=== PATIENT | male | born 1985 | race African-American/Black ===

== ENCOUNTER 2018-04-21 18:32 | Emergency (ER) | payer MEDICAID, OTHER, SELFPAY ==
[2018-04-21] MEDS ORDERED: ACETAMINOPHEN 325 MG TAB As Ordered (19:46)
[2018-04-21 19:50] LABS: HEMATOCRIT 38.9 % (42.0-52.0); HEMOGLOBIN 13.3 g/dl (13.5-17.5); MEAN CORPUSCULAR HEMOGLOBIN 28.4 pg (27.0-33.0); MEAN CORPUSCULAR HGB CONC 34.2 g/dl (32.0-36.5); MEAN CORPUSCULAR VOLUME 83.1 fl (80.0-96.0); PLATELET COUNT, AUTOMATED 203 10^3/uL (150-450); RED BLOOD COUNT 4.68 10^6/uL (4.30-6.10); RED CELL DISTRIBUTION WIDTH 13.9 % (11.5-14.5); WHITE BLOOD COUNT 8.2 10^3/uL (4.0-10.0)
[2018-04-21] MEDS: hydroCHLOROthiazide 25 MG TAB PO (19:51)
[2018-04-21] MEDS: LABETALOL 100 MG TAB PO (19:51)
[2018-04-21] MEDS: PENICILLIN V POTASSIUM 500 MG TAB PO (19:52)
[2018-04-21] MEDS: ACETAMINOPHEN 325 MG TAB PO (19:52)
[2018-04-21 20:18] LABS: ANION GAP 5 MEQ/L (8-16); BLOOD UREA NITROGEN 12 MG/DL (7-18); CALCIUM LEVEL 8.3 MG/DL (8.5-10.1); CARBON DIOXIDE LEVEL 33 MEQ/L (21-32); CHLORIDE LEVEL 103 MEQ/L (98-107); CREATININE FOR GFR 1.18 MG/DL (0.70-1.30); GLOMERULAR FILTRATION RATE > 60.0 (>60); GLUCOSE, FASTING 97 MG/DL (70-100); POTASSIUM SERUM 3.2 MEQ/L (3.5-5.1); SODIUM LEVEL 141 MEQ/L (136-145)
[2018-04-21] MEDS ORDERED: cloNIDine 0.1 MG TAB PO (20:30)
[2018-04-21] MEDS: LABETALOL HCL 100 MG/20 ML VIAL IV ×2 (21:20→22:08)
[2018-04-21] MEDS: hydrALAZINE INJ 20 MG/ML VIAL IV (21:21)
[2018-04-21] MEDS: IBUPROFEN 600 MG TAB PO (23:15)
== END 2018-04-21 23:36 | disposition home or self-care (01) ==
LOC: M ED 18:32
DX: J02.9 Acute pharyngitis, unspecified (principal); I10 Essential (primary) hypertension
CPT/HCPCS: 80048

== ENCOUNTER → 2018-11-04 | Outpatient (CLI) | payer MEDICAID, OTHER ==
[~2018-11-04] MED LIST: HYDR25TAB PO; LOPR1TAB6 PO; PENI500T PO
== END ==
LOC: M SLEEP HO 12:18
PROVIDERS: ATTEND Internal Medicine Pulmonary Disease
DX: R40.0 Somnolence (principal)

== ENCOUNTER 2020-06-04 11:33 | Inpatient (IN) | payer BC, OTHER, SELFPAY ==
[2020-06-04] VITALS (16 sets, daily range): BP systolic 157–205; BP diastolic 90–122
[~2020-06-04] VITALS: Ht 172.7 cm; Wt 105.4 kg
[2020-06-04] MEDS ORDERED: ASPIRIN 81 MG CHEW TABLET PO ONE (12:30)
[2020-06-04 13:07] LABS: BASO % 0.5 % (0.0-1.0); EOS # 0.1 10^3/uL (0.0-0.5); EOS % 2.5 % (0.0-3.0); HEMATOCRIT 41.2 % (42.0-52.0); HEMOGLOBIN 13.8 g/dl (13.5-17.5); LYMPH # 1.9 10^3/uL (1.5-5.0); LYMPH % 42.9 % (24.0-44.0); MEAN CORPUSCULAR HEMOGLOBIN 27.8 pg (27.0-33.0); MEAN CORPUSCULAR HGB CONC 33.5 g/dl (32.0-36.5); MEAN CORPUSCULAR VOLUME 82.9 fl (80.0-96.0); MONO # 0.5 10^3/uL (0.0-0.8); MONO % 10.8 % (0.0-5.0); NEUTROPHILS # 1.9 10^3/uL (1.5-8.5); NEUTROPHILS % 43.3 % (36.0-66.0); PLATELET COUNT, AUTOMATED 215 10^3/uL (150-450); RED BLOOD COUNT 4.97 10^6/uL (4.30-6.10); WHITE BLOOD COUNT 4.4 10^3/uL (4.0-10.0)
[2020-06-04 13:18] LABS: INR 0.99; PROTHROMBIN TIME 13.3 SECONDS (11.8-14.0)
[2020-06-04] MEDS ORDERED: LABETALOL 100MG/20ML VIAL IV STA ×2 (13:18→14:17)
[2020-06-04 13:19] LABS: PARTIAL THROMBOPLASTIN TIME 26.4 SECONDS (25.0-38.4)
[2020-06-04] MEDS ORDERED: NITROGLYCERIN 0.4 MG SUBL TABLET SL PRN (13:30)
--- NOTE | 2020-06-04 13:38 | REPVR ---
PROCEDURE INFORMATION: Exam: XR Chest, 2 Views Exam date and time: 06/04/2020 1:22 PM Age: 35 years old Clinical indication: Chest pain; Type not specified TECHNIQUE: Imaging protocol: XR of the chest Views: 2 views. COMPARISON: No relevant prior studies available. FINDINGS: Tubes, catheters and devices: Limitation: Multiple EKG leads are superimposed on the chest. Lungs: Unremarkable. No consolidation. Pleural space: Unremarkable. No pleural effusion. No pneumothorax. Heart/Mediastinum: Unremarkable. No cardiomegaly. Bones/joints: Unremarkable. IMPRESSION: No acute findings. Electronically signed by: Forest Simmons On 06/04/2020 13:38:56 PM
[2020-06-04 13:39] LABS: ALBUMIN 3.5 GM/DL (3.2-5.2); ALT/SGPT 42 U/L (12-78); BILIRUBIN,DIRECT 0.1 MG/DL (0.0-0.2); BILIRUBIN,TOTAL 0.4 MG/DL (0.2-1.0); BLOOD UREA NITROGEN 12 MG/DL (7-18); CALCIUM LEVEL 8.6 MG/DL (8.5-10.1); CARBON DIOXIDE LEVEL 33 MEQ/L (21-32); CHLORIDE LEVEL 104 MEQ/L (98-107); CK-MB VALUE MASS 1.9 NG/ML (<3.6); CPK CREATINE PHOSPHOKINASE 294 U/L (39-308); CREATININE FOR GFR 1.01 MG/DL (0.70-1.30); FREE T4 1.04 NG/DL (0.76-1.46); GLOMERULAR FILTRATION RATE > 60.0 (>60); GLUCOSE, FASTING 79 MG/DL (70-100); LIPASE 81 U/L (73-393); MB/CK RELATIVE INDEX 0.65 (< OR =4); POTASSIUM SERUM 3.1 MEQ/L (3.5-5.1); SODIUM LEVEL 142 MEQ/L (136-145); TOTAL PROTEIN 7.3 GM/DL (6.4-8.2); TROPONIN I 0.03 NG/ML (< 0.10)
[2020-06-04] MEDS ORDERED: ISOVUE-370 76% 100ML VIAL As Ordered ONE (13:49)
[2020-06-04] MEDS ORDERED: POTASSIUM CHLORIDE 10 MEQ SR TABLET PO ONE (14:00)
--- NOTE | 2020-06-04 14:29 | REPVR ---
PROCEDURE INFORMATION: Exam: CT Angiography Chest With Contrast Exam date and time: 06/04/2020 1:57 PM Age: 35 years old Clinical indication: Chest pain; Additional info: R/O tad TECHNIQUE: Imaging protocol: Computed tomographic angiography of the chest with intravenous contrast. 3D rendering (Not supervised by radiologist): MIP and/or 3D reconstructed images were created by the technologist. Radiation optimization: All CT scans at this facility use at least one of these dose optimization techniques: automated exposure control; mA and/or kV adjustment per patient size (includes targeted exams where dose is matched to clinical indication); or iterative reconstruction. Contrast material: ISOVUE 370; Contrast volume: 100 ml; Contrast route: INTRAVENOUS (IV); COMPARISON: CR Chest, 2 view PA, Lat 06/04/2020 1:12 PM FINDINGS: Pulmonary arteries: There is no evidence of peripheral filling defects within the pulmonary arterial circulation to suggest pulmonary embolism. Aorta: Unremarkable. No aortic aneurysm. No aortic dissection. Lungs: Unremarkable. No consolidation. No masses. Pleural space: Unremarkable. No pneumothorax. No pleural effusion. Heart: The RV/LV ratio is 33/57 mm. The pulmonary artery density is 413 units. Mediastinal space: A small hiatal hernia is present. Lymph nodes: Unremarkable. No enlarged lymph nodes. Liver: Upper abdomen: The visualized portions of the liver, pancreas, adrenal glands, and spleen show no significant abnormalities. Bones/joints: Unremarkable. No acute fracture. Soft tissues: Unremarkable. Other findings: There is no evidence of dissection, leak, rupture, or other complications. IMPRESSION: 1. There is no evidence of dissection, leak, rupture, or other complications. 2. The RV/LV ratio is 33/57 mm. The pulmonary artery density is 413 units. 3. There is no evidence of peripheral filling defects within the pulmonary arterial circulation to suggest pulmonary embolism. Electronically signed by: Forest Simmons On 06/04/2020 14:28:52 PM
[2020-06-04] MEDS ORDERED: DILT1CAP46 PO (15:37)
--- NOTE | 2020-06-04 17:14 | HPEPDOC ---
[facility] Medical History & Physical Date of Admission Jun 04, 2020 Date of Service: Jun 04, 2020 Attending Physician: CARMITA MARTE MD History and Physical CHIEF COMPLAINT: elevated blood pressure HISTORY OF PRESENT ILLNESS: 35 yo M with a hx of sleep apnea, HTN (non compliant with medications), was sent to the ED from sleep clinic for elevated blood pressures of 240s/130s. He denies headache, blurred vision, seizure or weakness. He received labetalol 10 mg IV, followed by an additional 20 mg labetalol IV without change to BP. He further began to endorse substernal non radiating chest pain after being told he will be admitted. EKG showed lateral T-wave inversions. Initial trop 0.03. CT angiogram was performed and did not show aortic dissection, nor evidence for PE. Patient was admitted to ICU, requiring nitro drip for hypertensive urgency. Dr. Camarillo was consulted for cardiology evaluation. PAST MEDICAL HISTORY: 1. 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 REVIEW OF SYSTEMS: CONSTITUTIONAL: none HEENT: none. CARDIOVASCULAR: none. RESPIRATORY: none. GASTROINTESTINAL: none. GENITOURINARY: none SKIN: none. MUSCULOSKELETAL: none. NEUROLOGICAL: none. PSYCHIATRIC: none. ENDOCRINE: none. HEMATOLOGIC/LYMPHATIC: none. HOME MEDICATIONS: Please see below. PHYSICAL EXAMINATION: VITAL SIGNS: see below GENERAL APPEARANCE: NAD, comfortable, sitting on edge of bed. HEENT: PERRLA, EOMI. CARDIOVASCULAR: RRR, midsystolic murmur appreciated LUNGS: CTAB, no wheeze, no rales. ABDOMEN: soft, non tender, no masses, BS+. MUSCULOSKELETAL: normal ROM, no joint deformity. EXTREMITIES: no edema. NEUROLOGICAL: no focal neuro deficits, CN2-12 intact PSYCHIATRIC: calm, cooperative. LABORATORY DATA: See below. IMAGING: CTA (06/04/20) IMPRESSION: 1. There is no evidence of dissection, leak, rupture, or other complications. 2. The RV/LV ratio is 33/57 mm. The pulmonary artery density is 413 units. 3. There is no evidence of peripheral filling defects within the pulmonary arterial circulation to suggest pulmonary embolism. MICROBIOLOGY: Please see below. ASSESSMENT: 35 yo M with a hx of HTN (med non compliant), presenting to [facility] ED from sleep clinic due to hypertensive urgency BP 230/130 mmHg. Complained of mild midsternal chest pain in the ED, which improved with NG. Trop wnl. EKG showing inverted T waves in lateral leads. Admitted to ICU on nitro drip for regulated BP control. 1. Hypertensive urgency: - BP 240/140s, asymptomatic. - No improvement post 30 mg labetalol IV - admit to ICU - nitro drip - check 2D echo, renal US, renal artery doppler - Check TSH, UA - Cardiology on consult, Dr. Stuart Discussed. 2. Chest pain - mild midsternal non radiating chest pain in ED, when told about BP and admission - no chest pain at home - CTA showing no dissection, no PE - initial trop 0.03, trend q6h - check lipid panel 3. Sleep apnea: follows at [facility] sleep clinic. Does not use CPAP at home. DVT ppx: lovenox Dispo: admission will span > nights. Plan for DC home once medically stable. Vital Signs Vital Signs Date Time Temp Pulse Resp B/P (MAP) Pulse Ox O2 Delivery O2 Flow Rate FiO2 06/04/20 14:48 76 205/129 06/04/20 11:33 97.9 20 99 Room Air Laboratory Data Labs 24H Laboratory Tests 2 06/04/20 12:53: Immature Granulocyte % (Auto) 0.0, Neutrophils (%) (Auto) 43.3, Lymphocytes (%) (Auto) 42.9, Monocytes (%) (Auto) 10.8H, Eosinophils (%) (Auto) 2.5, Basophils (%) (Auto) 0.5, Neutrophils # (Auto) 1.9, Lymphocytes # (Auto) 1.9, Monocytes # (Auto) 0.5, Eosinophils # (Auto) 0.1, Basophils # (Auto) 0.0, Nucleated Red Blood Cells % (auto) 0.0, Prothrombin Time 13.3, Prothromb Time International Ratio 0.99, Activated Partial Thromboplast Time 26.4, Anion Gap 5L, Glomerular Filtration Rate > 60.0, Calcium Level 8.6, Total Bilirubin 0.4, Direct Bilirubin 0.1, Aspartate Amino Transf (AST/SGOT) 19, Alanine Aminotransferase (ALT/SGPT) 42, Alkaline Phosphatase 66, Total Creatine Kinase 294, Creatine Kinase MB 1.9, Creatine Kinase MB Relative Index 0.65, Troponin I 0.03, Total Protein 7.3, Albumin 3.5, Albumin/Globulin Ratio 0.9, Lipase 81, Thyroid Stimulating Hormone (TSH) 1.130, Free Thyroxine 1.04 CBC/BMP Laboratory Tests 06/04/20 12:53 Home Medications Scheduled Diltiazem Hcl (Diltiazem 24Hr ER) 360 Mg Cap.er.24h, 360 MG PO DAILY HASN'T TAKEN IN A FEW WEEKS Allergies Coded Allergies: No Known Allergies (Unverified , 04/21/18) A-FIB/CHADSVASC A-FIB History Current/History of A-Fib/PAF?: No Current PO Anticoag Therapy: No CARMITA MARTE MD Jun 04, 2020 17:14
[2020-06-04] MEDS ORDERED: diltiaZEM 125 MG in NS 100 ML IV SCH (18:00)
[2020-06-04] MEDS ORDERED: NITROGLYCERIN/D5W 100MCG/ML 25 MG in IV 1 EA IV SCH (18:45)
[2020-06-04] MEDS: ACETAMINOPHEN 500 MG TAB PO PRN ×2 (18:56→21:42)
[2020-06-04] MEDS ORDERED: ONDANSETRON 4 MG ORAL DISINTEGRATING TAB PO STA (20:51)
[2020-06-04] MEDS ORDERED: amLODIPine 5 MG TAB PO SCH (21:00)
[2020-06-04] MEDS ORDERED: ONDANSETRON 4MG/2ML VIAL As Ordered ONE (21:38)
[2020-06-04] MEDS ORDERED: LISINOPRIL *2.5 MG* TAB PO ONE (23:45)
[2020-06-05] VITALS (14 sets, daily range): BP systolic 135–194; BP diastolic 70–112
[2020-06-05] MEDS: ACETAMINOPHEN 500 MG TAB PO PRN (00:57)
[2020-06-05 01:39] LABS: HEMOGLOBIN A1c 5.5 %
[2020-06-05 05:40] LABS: BASO % 0.4 % (0.0-1.0); EOS % 0.2 % (0.0-3.0); HEMOGLOBIN 13.9 g/dl (13.5-17.5); LYMPH # 0.9 10^3/uL (1.5-5.0); LYMPH % 18.6 % (24.0-44.0); MEAN CORPUSCULAR HGB CONC 32.3 g/dl (32.0-36.5); MEAN CORPUSCULAR VOLUME 83.5 fl (80.0-96.0); MONO # 0.3 10^3/uL (0.0-0.8); MONO % 5.7 % (0.0-5.0); NEUTROPHILS # 3.8 10^3/uL (1.5-8.5); NEUTROPHILS % 74.9 % (36.0-66.0); PLATELET COUNT, AUTOMATED 236 10^3/uL (150-450); RED BLOOD COUNT 5.15 10^6/uL (4.30-6.10); WHITE BLOOD COUNT 5.1 10^3/uL (4.0-10.0)
[2020-06-05 06:10] LABS: ALBUMIN 3.7 GM/DL (3.2-5.2); ALT/SGPT 43 U/L (12-78); BILIRUBIN,TOTAL 0.6 MG/DL (0.2-1.0); BLOOD UREA NITROGEN 11 MG/DL (7-18); CALCIUM LEVEL 8.9 MG/DL (8.5-10.1); CARBON DIOXIDE LEVEL 32 MEQ/L (21-32); CHLORIDE LEVEL 103 MEQ/L (98-107); CHOLESTEROL LEVEL 169 MG/DL (<200); CHOLESTEROL RISK RATIO 4.828 (<5); CREATININE FOR GFR 1.07 MG/DL (0.70-1.30); GLOMERULAR FILTRATION RATE > 60.0 (>60); GLUCOSE, FASTING 121 MG/DL (70-100); HDL CHOLESTEROL 35 MG/DL (>40); LDL CHOLESTEROL 121 MG/DL (<100); MAGNESIUM LEVEL 2.1 MG/DL (1.8-2.4); NON-HDL-C 134 MG/DL; PHOSPHORUS LEVEL 1.9 MG/DL (2.5-4.9); POTASSIUM SERUM 3.5 MEQ/L (3.5-5.1); SODIUM LEVEL 141 MEQ/L (136-145); TOTAL PROTEIN 7.5 GM/DL (6.4-8.2); TRIGLYCERIDES LEVEL 66 MG/DL (<150)
[2020-06-05 06:19] LABS: CORTISOL BASELINE 29.7 UG/DL (4.3-22.4)
--- NOTE | 2020-06-05 07:26 | REPVR ---
PROCEDURE INFORMATION: Exam: US Retroperitoneal Limited, Kidneys Exam date and time: 06/05/2020 6:40 AM Age: 35 years old Clinical indication: Other: Hypertensive urgency TECHNIQUE: Imaging protocol: Real-time ultrasound of the retroperitoneum with image documentation. Examination was focused on the kidneys. COMPARISON: No relevant prior studies available. FINDINGS: Right kidney: The right kidney measures 11.3 x 5.4 x 5.5 cm. Resistive indices 0.57-0.65. Normal appearing echotexture. There is no hydronephrosis or demonstrated renal stone, cyst or mass. Left kidney: The left kidney measures 12.1 x 6.2 x 4.0 cm. Resistive indices 0.50-0.54. Normal appearing echotexture. There is no hydronephrosis or demonstrated renal stone, cyst or mass. Bladder: The urinary bladder appears grossly unremarkable. Bilateral ureteral jets were visualized within it. IMPRESSION: Unremarkable sonographic appearance of the kidneys and urinary bladder. Electronically signed by: Quinton Carey On 06/05/2020 07:25:53 AM
[2020-06-05] MEDS ORDERED: lisinopriL 5 MG TAB PO SCH (09:00)
[2020-06-05] MEDS ORDERED: ENOXAPARIN 40MG/0.4ML SYRINGE (J1650 PER 10MG) SC SCH (09:00)
[2020-06-05] MEDS ORDERED: lisinopriL 5 MG TAB PO ONE ×2 (11:30→17:30)
[2020-06-05] MEDS ORDERED: amLODIPine 5 MG TAB PO ONE (11:45)
[2020-06-05] MEDS ORDERED: LISI-538 PO (18:11)
[2020-06-05] MEDS ORDERED: AMLO1TAB25 PO (18:11)
--- NOTE | 2020-06-05 18:16 | DS.PDOC ---
Discharge Summary General Date of Admission Jun 04, 2020 at 16:40 Date of Discharge 06/05/2020 Attending Physician: CARMITA MARTE MD Discharge Summary PROCEDURES PERFORMED DURING STAY: [None]. ADMITTING DIAGNOSES: 1. Hypertensive urgency 2. Sleep apnea 3. Chest pain DISCHARGE DIAGNOSES: 1. Hypertensive urgency 2. Sleep apnea 3. Chest pain COMPLICATIONS/CHIEF COMPLAINT: Abnormal Ekg,Hypertensive Urgency. HISTORY OF PRESENT ILLNESS:35 yo M with a hx of HTN (med non compliant), presenting to [facility] ED from sleep clinic due to hypertensive urgency BP 230/130 mmHg. Complained of mild midsternal chest pain in the ED, which improved with NG. Trop wnl. EKG showing inverted T waves in lateral leads. Admitted to ICU on nitro drip for regulated BP control. HOSPITAL COURSE: Patient was admitted to ICU for hypertensive urgency. BP treated with nitroglycerin ggt. 2DECHO, renal US and renal artery dopplers were ordered. Troponins were trended (0.03, 0.04, 0.02). Cardiology was consulted - Dr. Camarillo. Patient's blood pressure improved overnight to 163/78, and patient was transitioned to PO medications. Lisipopril and amlodipine were started and titrated. 2D echo showed normal LV function without hypertrophy. Patient's BP melissa through the day, however patient wanted to leave AMA without waiting for titration of PO medications. Renal doppler report not available. Renin pending. Patient was not cleared by cardiology to leave. Risks of stroke, paralysis, explained. Patient verbalized understanding and signed AMA release. DISCHARGE MEDICATIONS: Please see below. ALLERGIES: Please see below. PHYSICAL EXAMINATION ON DISCHARGE: VITAL SIGNS: Please see below. GENERAL APPEARANCE: NAD, comfortable, sitting on edge of bed. HEENT: PERRLA, EOMI. CARDIOVASCULAR: RRR, midsystolic murmur appreciated LUNGS: CTAB, no wheeze, no rales. ABDOMEN: soft, non tender, no masses, BS+. MUSCULOSKELETAL: normal ROM, no joint deformity. EXTREMITIES: no edema. NEUROLOGICAL: no focal neuro deficits, CN2-12 intact PSYCHIATRIC: calm, cooperative. LABORATORY DATA: Please see below. IMAGING: CXR (06/04/2020) IMPRESSION: No acute findings. CTA chest (06/04/2020) IMPRESSION: 1. There is no evidence of dissection, leak, rupture, or other complications. 2. The RV/LV ratio is 33/57 mm. The pulmonary artery density is 413 units. 3. There is no evidence of peripheral filling defects within the pulmonary arterial circulation to suggest pulmonary embolism. Renal US (06/04/2020) IMPRESSION: Unremarkable sonographic appearance of the kidneys and urinary bladder. ACTIVITY: [As tolerated]. DIET: cardiac DISCHARGE PLAN: patient left AMA however was advised to follow up with PCP, and cardiology DISPOSITION: left AMA DISCHARGE INSTRUCTIONS: 1. take BP meds as prescribed. 2. If severe headache, blurred vision, chest pain, to come to ED or dial 911. ITEMS TO FOLLOWUP ON ON OUTPATIENT: 1. Repeat blood pressure 1-3 days. DISCHARGE CONDITION: [Stable]. Vital Signs/I&Os Vital Signs Date Time Temp Pulse Resp B/P (MAP) Pulse Ox O2 Delivery O2 Flow Rate FiO2 06/05/20 17:21 175/84 06/05/20 17:00 98.7 82 17 98 Room Air I&O- Last 24 Hours up to 6 AM 06/05/20 06:00 Intake Total 734 ml Output Total 825 ml Balance -91 ml Laboratory Data Labs 24H Laboratory Tests 2 06/04/20 18:42: Troponin I 0.04# 06/05/20 00:57: Troponin I 0.02# 06/05/20 05:16: Immature Granulocyte % (Auto) 0.2, Neutrophils (%) (Auto) 74.9H, Lymphocytes (%) (Auto) 18.6L, Monocytes (%) (Auto) 5.7H, Eosinophils (%) (Auto) 0.2, Basophils (%) (Auto) 0.4, Neutrophils # (Auto) 3.8, Lymphocytes # (Auto) 0.9L, Monocytes # (Auto) 0.3, Eosinophils # (Auto) 0.0, Basophils # (Auto) 0.0, Nucleated Red Blood Cells % (auto) 0.0, Anion Gap 6L, Glomerular Filtration Rate > 60.0, Calcium Level 8.9, Phosphorus Level 1.9L, Magnesium Level 2.1, Total Bilirubin 0.6, Aspartate Amino Transf (AST/SGOT) 21, Alanine Aminotransferase (ALT/SGPT) 43, Alkaline Phosphatase 71, Total Protein 7.5, Albumin 3.7, Albumin/Globulin Ratio 1.0, Triglycerides Level 66, Total Cholesterol 169, LDL Cholesterol 121H, Non-HDL Cholesterol (LDL + VLDL) 134, Total HDL Cholesterol 35L, Cholesterol/HDL Ratio 4.828, Cortisol Baseline 29.7H CBC/BMP Laboratory Tests 06/05/20 05:16 Discharge Medications Scheduled Amlodipine Besylate (Amlodipine Besylate) 10 Mg Tablet, 10 MG PO DAILY Lisinopril (Lisinopril) 20 Mg Tablet, 20 MG PO DAILY Allergies Coded Allergies: No Known Allergies (Unverified , 04/21/18) CARMITA MARTE MD Jun 05, 2020 18:16
[2020-06-06] MEDS ORDERED: lisinopriL 20 MG TAB PO SCH (09:00)
[2020-06-06] MEDS ORDERED: amLODIPine 10 MG TAB PO SCH (09:00)
[2020-06-06] MEDS ORDERED: lisinopriL 10 MG TAB PO SCH (09:00)
--- NOTE | 2020-06-08 07:34 | CR ---
DATE OF CONSULTATION: 06/05/2020 REFFERING PHYSICIAN: Dr. Kessler REASON FOR CONSULTATION: Elevated blood pressure, abnormal electrocardiogram (EKG). HISTORY OF PRESENT ILLNESS: 35-year-old -[place] male with a history of hypertension for which he has been on medication for one to two years, obstructive sleep apnea (LISBET), was recommended by his house mover helper to come to the emergency room for further evaluation and treatment because his blood pressure was markedly elevated. He was having a follow up on his sleep apnea. There was no report of chest pain, blurred vision, focal manifestation. He does complain of some headache at times and he thinks that his blood pressure is elevated. Upon arrival at the emergency room, it was reported that his blood pressure was up to 240/130. He was given IV labetalol and received up to 30 mg IV in the emergency room without any changes in his blood pressure. He then was admitted for further management and monitoring to ICU/NCCU. Cardiology consult was called. He was then started last evening on IV nitroglycerin, which has brought his systolic blood pressure to 170 mmHg. He was started on amlodipine and lisinopril. When I saw Mr. Escobedo this morning in ICU, he was in supine in bed in no acute distress at rest. He denies any chest pain, shortness of breath, palpitations, pedal edema, orthopnea, syncope or near syncope, focal manifestation. He has not been having headaches or dizziness. He stated that he did not renew his medication for about four weeks and has not been taking them. His diet continues to be regular. He denies any nausea, vomiting, diarrhea, melena or hematemesis. There is no report of bleeding. His main concern that he wants to go home later today/ PAST MEDICAL HISTORY IS POSITIVE FOR: 1. Hypertension 2. Obstructive sleep apnea. 3. Obesity. He denies any prior history of hyperlipidemia, diabetes mellitus, significant valvular heart disease, cardiomyopathy, sudden cardiac , thyroid disease or , kidney disease, liver disease, lung disease, . He goes to pulmonary for his obstructive sleep apnea (LISBET). PAST SURGICAL HISTORY: Noncontributory. SOCIAL HISTORY: The patient currently lives in [place] and was in town to see his house mover helper for follow up on his obstructive sleep apnea. He works with [employer]. He denies smoking or ETOH abuse or illicit drugs. ALLERGIES: No known drug allergies. ADVANCED DIRECTIVES: The patient is a full code. FAMILY HISTORY: Positive for diabetes, his mother. CURRENT MEDICATIONS: Lisinopril 5 mg p.o daily, amlodipine 5 mg daily, Lovenox 40 mg subcutaneous daily. Also on Tylenol 1000 mg q 6 hours as needed for pain or fever or headaches. PHYSICAL EXAMINATION: The patient is alert and oriented in no acute distress at rest and very pleasant. His vital signs when I saw him revealed a blood pressure of 176/87 with a pulse of 94, respirations 18 to 20 and his maximum temperature was 98 degrees Fahrenheit with oxygen saturation 98-99% on room air. Examination of the head: Atraumatic. Neck is supple and no jugular venous distention (JVD) appreciated. The lungs did not reveal any wheezing or crackles. The heart examination revealed regular heart sounds, S4 gallops. I could not appreciate any murmurs. Abdomen is soft and nontender, bowel sounds are active and no bruits. Extremities reveal no pedal edema. Neurological examination is negative for focal deficit. LABORATORY DATA: Complete blood count (CBC) done today revealed WBC of 5.1, hemoglobin 13.9, hematocrit 43.0 and platelets 236,000. Basic metabolic panel (BMP) revealed sodium of 141, potassium 3.5, chloride 103, carbon dioxide 32, BUN 11, creatinine 1.07, glomerular filtration rate (GFR) more than 60, fasting glucose 121, calcium 8.9. Serum magnesium 2.1 Liver enzymes revealed a total bilirubin of 0.6, AST 21, ALT 43, alkaline phosphatase 71, total protein 7.5, albumin 3.7. Lipid profile revealed a total cholesterol of 169, triglycerides 66, LDL 121 and total cholesterol/HDL ratio of 4.8. Serum troponin was 0.03, 0.04 and 0.02. Serum potassium on admission was 3.1. TSH on admission was 1.1 with a free T4 of 1.04. Serum lipase was normal at 81. Hemoglobin A1c on 06/04/2020 was 5.5. PT is 13.3, INR of 0.99 and PTT of 26.4 IMAGING DATA: Chest x-ray on admission revealed no acute disease process. No cardiomegaly. CT angiogram of the chest done on 06/04/2020 revealed no evidence of dissection, pulmonary embolism. Renal ultrasound done today, 06/05/2020, was unremarkable. IMPRESSION: post accelerated hypertension in this 35 year old male with history of hypertension and due to noncompliance with his medications and diet. This was discussed with him. He has agreed to start this medication regularly, but I do not think he is ready to follow a low-salt diet. I have increased his amlodipine up to 7.5 mg p.o daily and his lisinopril to 10 mg p.o. daily. He had an echocardiogram done. There was some concern about hypotrophic cardiomyopathy, but there was no manifestation of hypotrophic cardiomyopathy. He has a normal left ventricular ejection fraction (LVEF) with only mild mitral regurgitation. Full report is in the chart. While in the hospital, I have started workup for accelerated hypertension and will check his serum ammonia level and serum cortisol, particularly in view of the hypokalemia noted on his basic metabolic panel (BMP) on admission. If he remains stable today, he may be discharged home and I will see him again in about two weeks for follow up on his blood pressure in the office. Low salt diet was recommended as well as weight loss, exercise as tolerated. It was a pleasure to participate in the care of Mr. Escobedo for his underlying cardiac condition. He appears to be stable and his blood pressure has improved significantly. Once again, he may be discharged home if he remains stable this afternoon. Otherwise, if his blood pressure remains high, we can increase his medication and watch him for another 24 hours. The case was discussed with his hospitalist. MALCOLM
--- NOTE | 2020-06-09 16:26 | ECHO ---
DATE OF PROCEDURE: 06/04/2020 Age: 35 Gender: Height: Weight: REFERRING PHYSICIAN: EG INDICATION: Abnormal electrocardiogram (EKG), hypertension. MEASUREMENTS: 2D measurements: IVS 1.3 cm LV 5.3 cm LVPW 1.2 cm LA 4.0 cm Aorta 2.9 cm IVC 1.6 cm DOPPLER MEASUREMENTS: Peak velocity across the aortic valve 1.4 cm/s Peak velocity of across LVOT 0.8 cm/s Mitral E 1.0 Mitral A 0.5 with a ratio of 1.8 2D COMMENTS: 1. Normal left ventricular size with mildly increased left ventricular wall thickness and low normal global left ventricular systolic function. Estimated left ventricular systolic ejection fraction is 55 to 60% 2. Borderline enlarged left atrium. Normal right atrium and right ventricle. 3. The atrial septum appears to be normal without evidence of defect or shunt. 4. Normal aortic root. 5. Trace pericardial effusion noted. No evidence of cardiac tamponade 6. The aortic valve, mitral valve and tricuspid valve appear to be normal. The pulmonic valve and proximal pulmonary artery branches were not well visualized. 7. The inferior vena cava was normal in size. Central venous pressure is most likely normal. DOPPLER: It detects mild mitral regurgitation and trace tricuspid regurgitation. The pulmonary artery systolic pressure is most likely normal. Assessment of the left ventricular diastolic function appears to be normal. IMPRESSION: 1. Low normal global left ventricular systolic pressure. Assessment of the left ventricular diastolic function appears to be normal. There was mild concentric left ventricular hypertrophy. 2. Borderline enlarged left atrium with mild mitral regurgitation. 3. Trace tricuspid regurgitation. 4. Trace pericardial effusion. [facility]
--- NOTE | 2020-06-16 20:28 | ECGEPIP ---
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
--- NOTE | 2020-07-02 13:31 | REP ---
RENAL ARTERY DOPPLER ULTRASOUND HISTORY: Hypertensive urgency. SONOGRAPHIC FINDINGS: Peak systolic flow velocity in the abdominal aorta is normal measuring 107.7 cm/s. Peak systolic flow velocity in the left main renal artery is 142 cm/s and that recorded in the right main renal artery is 100 cm/s. These values are normal. [id number] flow velocity ratios are therefore normal at 0.9 on the right and 1.3 on the left. Resistive indices and acceleration times are measured in the upper, mid, and lower pole intralobar arteries of each kidney and these values are normal bilaterally. IMPRESSION: No renal Doppler evidence to suggest renal artery stenosis. MTDD
== END 2020-06-05 18:20 | disposition left against medical advice (07) | DRG 199 ==
LOC: M ED 11:33 → M ED INP 16:40 → ENRESERV 17:03 → M ICU 18:23
PROVIDERS: ADMIT Family Medicine; ATTEND Family Medicine
DX: I16.0 Hypertensive urgency (principal); E66.9 Obesity, unspecified; R10.9 Unspecified abdominal pain; G47.33 Obstructive sleep apnea (adult) (pediatric); Z91.14 Patient's other noncompliance with medication regimen; Z79.899 Other long term (current) drug therapy